=== PATIENT | female | born 1995 | race American Indian/Alaskan Native ===

== ENCOUNTER 2017-07-20 17:07 | Emergency (ER) | payer OTHER ==
[2017-07-20 21:21] LABS: Bacteria,Urine 1+ /HPF (Negative); Bilirubin,Urine NEG (Negative); Blood,Urine SM (Negative); Color,Urine Yellow (Yellow); Mucus,Urine FEW /HPF; Nitrite,Urine NEG (Negative); Protein,Urine <15 mg/dL mg/dL (Negative)
[2017-07-20 21:22] LABS: HCG Qualitative,Urine Negative (Negative)
--- NOTE | 2017-07-20 23:56 | Emergency Department Report ---
HPI - General Chief Complaint: Urogenital-Female Time Seen by Provider: 07/20/17 23:53 - HPI HPI: This is a 21-year-old female who presents ED complaining of burning and describes a sensation with urination 2 days. Patient states only gets the sensation whenever she urinates. Patient denies vaginal bleeding, abdominal pain, nausea, vomiting, fever, chills or any other symptoms. Patient states she 's had a UTI before suicide this is what it is ED Past Medical Hx - Past Medical History Previous Medical History?: No - Social History Smoking Status: Never Smoker - Medications Home Medications: Home Medications Medication Instructions Recorded Confirmed Last Taken Type Ciprofloxacin HCl [Ciprofloxacin 500 mg PO Q12HR #14 tab 07/20/17 Unknown Rx TAB] Phenazopyridine [Pyridium] 100 mg PO TID #6 tab 07/20/17 Unknown Rx ED Review of Systems ROS: Stated complaint: UTI Other details as noted in HPI Constitutional: denies: chills, fever Eyes: denies: eye pain, eye discharge, vision change ENT: denies: ear pain, throat pain Respiratory: denies: cough, shortness of breath, wheezing Cardiovascular: denies: chest pain, palpitations Endocrine: no symptoms reported Gastrointestinal: denies: abdominal pain, nausea, diarrhea Genitourinary: dysuria, frequency. denies: urgency, discharge Musculoskeletal: denies: back pain, joint swelling, arthralgia Skin: denies: rash, lesions, pruritus Neurological: denies: headache, weakness, paresthesias Psychiatric: denies: anxiety, depression Hematological/Lymphatic: denies: easy bleeding, easy bruising Physical Exam - Physical Exam Vital Signs: Vital Signs 07/20/17 19:36 Temperature 98.6 F Pulse Rate 78 Respiratory 20 Rate Blood Pressure 117/48 O2 Sat by Pulse 100 Oximetry Physical Exam: GENERAL: Alert and oriented x3, no apparent distress, Normal Gait, atraumatic. LUNGS: Symetrical with respiration, No wheezing, no rales or crackles, CTAB. HEART: S1, S2 present, regular rate and rhythm without murmur, no rubs, no gallops. Non tender to palpation ABDOMEN: No organomegaly was noted,Positive bowel sounds, soft, and non- distended. . Nontender to palpation on all Quadrants, NO CVA tenderness. BACK: Full range of motion, no spinal tenderness, nontender to palpation. SKIN: Warm and dry, No lesions, No ulceration or induration present. ED Course Vital Signs 07/20/17 19:36 Temperature 98.6 F Pulse Rate 78 Respiratory 20 Rate Blood Pressure 117/48 O2 Sat by Pulse 100 Oximetry ED Medical Decision Making - Medical Decision Making 21-year-old female presents to the urinary tract infection ED course calling urinalysis positive for bacteria, leukocyte esterase and small blood suggested of a UTI Urine test is negative. I discussed his findings with patient. I discussed the patient she will be sent home on antibiotics since a complete dose. I discussed the patient she'll be given some medication at house with the basis is showing urine and superiorly anterior to the fact that it causes bodily fluids reddish orange color. Vital signs are normal patient is in acute distress she understands all instructions given I discussed this patient to follow up with primary care physician in a week. Critical care attestation.: If time is entered above; I have spent that time in minutes in the direct care of this critically ill patient, excluding procedure time. ED Disposition Clinical Impression: UTI (urinary tract infection) Qualifiers: Urinary tract infection type: acute cystitis Hematuria presence: without hematuria Qualified Code(s): N30.00 - Acute cystitis without hematuria Disposition: - TO HOME OR SELFCARE Is pt being admited?: No Does the pt Need Aspirin: No Condition: Stable Instructions: Urinary Tract Infection in Women (ED), Dysuria (ED) Additional Instructions: Make sure to follow up with the primary care physician as discussed. Take all your medications as you've been prescribed. If you have any worsening symptoms or develop new symptoms please return to ED immediately. Prescriptions: Ciprofloxacin HCl [Ciprofloxacin TAB] 500 mg PO Q12HR #14 tab Phenazopyridine [Pyridium] 100 mg PO TID #6 tab Referrals: VIOLET MCHUGH MD [Primary Care Provider] - 3-5 Days [facility] [Outside] - 3-5 Days Forms: AMA Form, Work/School Release Form(ED) Time of Disposition: 23:55
[2017-07-21 05:42] VITALS: BP 113/63
== END 2017-07-21 00:05 | disposition home or self-care (01) ==
LOC: ED 17:07
DX: N30.00 Acute cystitis without hematuria (principal)
CPT/HCPCS: 81001; 81025